=== PATIENT | male | born 1980 | race Caucasian/White ===

== ENCOUNTER 2016-09-13 15:59 | Emergency (ER) | payer SELFPAY | END 2016-09-13 17:38 | disposition home or self-care (01) | LOC: ER1 15:59 | DX: R42 Dizziness and giddiness (principal); W22.03XA Walked into furniture, initial encounter | CPT/HCPCS: 99283 ==

== ENCOUNTER 2016-09-26 19:21 | Emergency (ER) | payer SELFPAY | END 2016-09-26 20:30 | disposition home or self-care (01) | LOC: ER1 19:21 | DX: R11.2 Nausea with vomiting, unspecified (principal); R19.7 Diarrhea, unspecified; R10.30 Lower abdominal pain, unspecified | CPT/HCPCS: 99283 ==

== ENCOUNTER 2021-02-18 12:44 | Emergency (ER) | payer OTHER ==
[~2021-02-18 12:44] MED LIST: BENTYL 20MG TAB20 MG PO; DELSYM30 MG/5 ML PO; FLONASE 0.05% N16 GM; IBUPROFEN600 MG PO; IBUPROFEN800 MG PO; SUDAFED 60 MG T60 MG PO; TAMIFLU75 MG PO; TORADOL 10 MG T10 MG PO; TRAMADOL HCL50 MG PO; ZOFRAN4 MG PO
[2021-02-18 14:32] LABS: HEMOGLOBIN 13.8 gm/dl (14.0-17.5); RED BLOOD COUNT 4.61 M/UL (4.20-5.50); WHITE BLOOD COUNT 8.5 K/UL (4.5-11.0)
[2021-02-18 14:42] LABS: BUN/CREATININE RATIO 15 (0-10)
== END 2021-02-18 16:00 | disposition home or self-care (01) ==
LOC: ER1 12:44
PROVIDERS: Emergency Medicine
DX: R55 Syncope and collapse (principal); S63.501A Unspecified sprain of right wrist, initial encounter; X50.1XXA Overexertion from prolonged static or awkward postures, initial encounter
CPT/HCPCS: 71045; 73110; 80053; 82550; 82553; 83735; 83874; 84484; 85025; 93005; 99284; J7030

== ENCOUNTER 2021-04-02 20:55 | Emergency (ER) | payer OTHER ==
[2021-04-02] MEDS ORDERED: NAPROSYN500 MG PO (21:22)
== END 2021-04-02 21:47 | disposition home or self-care (01) ==
LOC: ER1 20:55
DX: M79.671 Pain in right foot (principal)
CPT/HCPCS: 73630; 99283

== ENCOUNTER → 2021-07-17 | Outpatient (CLI) | payer OTHER ==
[~2021-07-17] MED LIST changes: +NAPROSYN500 MG PO
== END ==
LOC: KOH-I 16:24
DX: M79.645 Pain in left finger(s) (principal); S62.615A Displaced fracture of proximal phalanx of left ring finger, initial encounter for closed fracture
CPT/HCPCS: 73140